=== PATIENT | female | born 1980 | race Two or more races ===

== ENCOUNTER 2021-05-01 12:16 | Outpatient (CLI) | payer OTHER | END 2021-05-01 12:31 | disposition home or self-care (01) | LOC: SONOGRAMA 12:16 | PROVIDERS: ATTEND Surgery | DX: N60.82 Other benign mammary dysplasias of left breast (principal); N60.11 Diffuse cystic mastopathy of right breast; N60.12 Diffuse cystic mastopathy of left breast ==